=== PATIENT | female | born 1975 | race Caucasian/White ===

== ENCOUNTER → 2024-05-02 | Outpatient (CLI) | payer OTHER, SELFPAY ==
[2024-05-05 09:22] LABS: Hepatitis B Core Ab Total Negative (Negative)
[2024-05-05 22:50] LABS: HIV - WCH Non-Reactive (Nonreactive); Hepatitis B Surface Antibody Non-Reactive; Hepatitis B Surface Antigen Non-Reactive (Nonreactive); Hepatitis C Antibody Non-Reactive (Nonreactive)
== END | disposition home or self-care (01) ==
PROVIDERS: PCP Preventive Medicine Occupational Medicine; Referring Provider Physician Assistant; Visit Provider Physician Assistant
DX: D48.5 Neoplasm of uncertain behavior of skin (principal); R20.8 Other disturbances of skin sensation; L91.8 Other hypertrophic disorders of the skin; Z11.59 Encounter for screening for other viral diseases
CPT/HCPCS: 36415; 86703; 86704; 86706; 86803; 87340